=== PATIENT | male | born 1965 | race Caucasian/White ===

== ENCOUNTER 2018-12-10 04:17 | Inpatient (IN) ==
[2018-12-10] MEDS ORDERED: Aspirin 81 MG TAB.CHEW PO ONE (04:38)
[2018-12-10] MEDS ORDERED: *HR* Ticagrelor 90 MG TABLET PO ONE (04:38)
[2018-12-10] MEDS ORDERED: *HR* Heparin 5,000 UNIT/ML VIAL IVP ONE (04:40)
[2018-12-10] MEDS ORDERED: 0.9 % Sodium Chloride 1,000 ML IVC ONE (04:42)
[2018-12-10] MEDS ORDERED: Heparin 25,000 UNIT/250 ML D5W 25,000 UNIT/250 ML IV.SOLN IVC SCH (04:45)
--- NOTE | 2018-12-10 04:45 | Emergency Department Note ---
Disposition Clinical Impression: STEMI (ST elevation myocardial infarction) Qualifiers: Involved coronary artery: right coronary artery Qualified Code(s): I21.11 - ST elevation (STEMI) myocardial infarction involving right coronary artery Disposition: Admitted As Inpatient Condition: Fair Time of Disposition: 04:48 Chest Pain HPI - General Stated Complaint: CP/Jaw Pain Time Seen by Provider: 12/10/18 04:18 Source: patient, family () Mode of arrival: private vehicle Limitations: no limitations Vital Signs Reviewed: Yes Nursing Notes Reviewed: Yes - History of Present Illness HPI Narrative: 53-year-old male no prior cardiac history presents to the emergency department with chest discomfort jaw pain. States over the past 3 days sees been having intermittent jaw pain that occasionally will go away. This evening approximately one hour prior to arrival he woke up with significant jaw pain bilateral. Describes as a constant ache. He states he believes he was having a heart attack as this was worsen his typical anxiety attacks. He also has a very mild midsternal chest discomfort. Denies any diaphoresis, shortness of breath, nausea or vomiting. Reports of significant family history of heart disease. No prior cardiac evaluation. Reports a recent upper respiratory infection. Denies any blood in his stool black tarry stool, hemoptysis or hematemesis. He took 2 81 mg aspirin and believe prior to coming here now any relief of his symptoms. EKG on initial valuation shows inferior STEMI and STEMI alert immediately initiated. Pt complaint: chest pain - Related Data Allergies Allergy/AdvReac Type Severity Reaction Status Date / Time No Known Allergies Allergy Unverified 12/10/18 04:40 All systems ED: reviewed and negative except as stated. Review of Systems: As Per HPI Constitutional: Denies: fever, chills Cardiovascular: Reports: chest pain Respiratory: Denies: cough, dyspnea Gastrointestinal: Denies: abdominal pain, nausea, vomiting Musculoskeletal: Denies: back pain Integumentary: Denies: rash, abrasion Neurological: Denies: headache Psychiatric: Reports: anxiety Physical Exam - General Limitations: no limitations General appearance: alert, in no apparent distress - Head Head exam: atraumatic, normocephalic, normal inspection - Eye Eye exam: Present: normal appearance, PERRL, EOMI - ENT ENT exam: normal exam, normal oropharynx, mucous membranes moist - Neck Neck exam: Present: normal inspection, full ROM, trachea midline - Chest Chest inspection: Present: normal inspection, symmetric chest wall rise. Abs ent: tenderness - Respiratory Respiratory exam: Present: normal lung sounds bilaterally - Cardiovascular Cardiovascular exam: Present: regular rate, normal rhythm, normal heart sounds - Expanded Cardiovascular Exam Peripheral pulses: 2+: radial (R), radial (L) - Abdominal Exam Abdominal exam: Present: soft, Non-Tender, normal bowel sounds. Absent: tenderness, distention, guarding, rebound, rigidity - Extremities Exam Extremities exam: Present: normal inspection, full ROM, normal capillary refill. Absent: tenderness, pedal edema, calf tenderness - Back Exam Back exam: Present: normal inspection, full ROM. Absent: tenderness - Neurological Exam Neurological exam: Present: alert, oriented X3 - Psychiatric Psychiatric exam: Present: normal affect, normal mood - Skin Skin exam: Present: warm, dry, intact, normal color. Absent: rash, cyanosis, diaphoresis Course Course Narrative: STEMI alert initiated, will proceed to CATH. - Reevaluation(s) Reevaluation #1: Trop 0.32 Time: 05:32 - Consultations Consultation #1: My attending Dr. Nicolasa Dowell spoke to the on-call boomswing operator Dr. Núñez recommended 5000 units of heparin including aspirin in [place] today. Patient will be brought to the catheterization lab for STEMI Time: 04:47 Consultation #2: Dr. Núñez at bedside evaluating the patient. He remains hemodynamically stable. Time: 05:08 Vital Signs Temperature 98.2 F 12/10/18 04:43 Pulse Rate 105 12/10/18 04:43 Respiratory Rate 18 12/10/18 04:43 Blood Pressure 113/98 12/10/18 04:43 O2 Sat by Pulse Oximetry 98 12/10/18 04:43 Temperature 98.2 F 12/10/18 04:43 Pulse Rate 87 12/10/18 05:05 Respiratory Rate 20 12/10/18 05:05 Blood Pressure 172/78 12/10/18 05:09 O2 Sat by Pulse Oximetry 97 12/10/18 05:05 Oxygen Delivery Oxygen Delivery Room Air Chest Pain - MDM Narrative Medical decision making narrative: Patient was discussed with my attending physician who agrees with ED management and final disposition. They independently evaluated the patient. Please refer to their attestation to this encounter for additional information. This note was generated by [employer] voice recognition software and as a result grammatical or spelling errors may occur using this program. - Medical Records Medical records reviewed: Yes I reviewed the patient's medical records. - Lab Data Lab results reviewed: Yes I reviewed the patient's lab results. Result diagrams: 12/10/18 04:42 12/10/18 04:42 Lab Results 12/10/18 12/10/18 12/10/18 Range/Units 04:42 04:42 04:42 WBC 9.1 (4.3-11.1) K/mcL RBC 5.40 (4.19-5.50) M/mcL Hgb 15.7 (12.9-16.9) g/dL Hct 47.7 (37.5-50.1) % MCV 88.3 (83.0-100.0) fL MCH 29.1 (28.0-33.3) pg MCHC 32.9 (31.6-35.5) g/dL RDW 13.9 (11.5-14.5) % Plt Count 244 (140-400) K/mcL MPV 10.5 (9.4-12.4) fL Immature Gran % 0.3 (0-4) % Seg Neutrophils % 54.4 % Lymphocytes % 37.2 % Monocytes % 7.0 % Eosinophils % 0.7 % Basophils % 0.4 % Neutrophils # 4.9 (1.6-8.9) K/mcL Lymphocytes # 3.4 (0.6-4.6) K/mcL Monocytes # 0.6 (0.0-1.3) K/mcL Eosinophils # 0.1 (0.0-0.6) K/mcL Basophils # 0.0 (0.0-0.2) K/mcL PT 12.5 H (9.4-12.1) Seconds INR 1.1 APTT 28.6 (26.0-36.0) Seconds Heparin Anti-Xa, Unfract 0.00 L (0.30-0.70) IU/mL Sodium 135 L (136-145) mEq/L Potassium 3.6 (3.5-5.1) mEq/L Chloride 99 (98-107) mEq/L Carbon Dioxide 27 (23-29) mEq/L BUN 14 (6-20) mg/dL Creatinine 1.25 (0.70-1.30) mg/dL Est GFR ( Amer) > 60 (> 60) Est GFR (Non-Af Amer) > 60 (> 60) BUN/Creatinine Ratio 11 (6-26) Glucose 125 H (70-105) mg/dL Calculated Osmolality 282 (280-300) Calcium 9.3 (8.6-10.3) mg/dL Troponin I 0.32 H* (< 0.04) ng/mL - EKG Data EKG attestation: Yes I reviewed and interpreted this EKG. EKG results narrative: EKG performed 0435 normal sinus rhythm 75 beats per minute with significant ST elevation in lead [address] depression seen in the septal and lateral leads 1 and a VL. This is a STEMI Heart Score - Score History: Highly Suspicious EKG: Significant ST-Depression Age: 45-65 Risk Factors: 1-2 risk factors Troponin: Greater than 3x normal limit HEART Score Total: 8
--- NOTE | 2018-12-10 04:49 | Emergency Department Note ---
Disposition Clinical Impression: STEMI (ST elevation myocardial infarction) Qualifiers: Involved coronary artery: unspecified coronary artery Qualified Code(s): I21.3 - ST elevation (STEMI) myocardial infarction of unspecified site Disposition: Admitted As Inpatient Condition: Fair Time of Disposition: 04:49 General Adult HPI - General Stated complaint: CP/Jaw Pain Time Seen by Provider: 12/10/18 04:18 Source: patient, family () Mode of arrival: private vehicle Limitations: no limitations - History of Present Illness Pain Scale: 2 - Related Data Allergies Allergy/AdvReac Type Severity Reaction Status Date / Time No Known Allergies Allergy Unverified 12/10/18 04:40 Constitutional: Denies: fever, chills Cardiovascular: Reports: chest pain Respiratory: Denies: cough, dyspnea Gastrointestinal: Denies: abdominal pain, nausea, vomiting Past Medical History - Past Medical History Medical history: Reports: GERD Psychiatric history: Reports: no psych history - Social History Smoking Status: Never smoker Smokeless Tobacco Status: No Alcohol use: Reports: occasionally Drug use: Reports: none Physical Exam - General Limitations: no limitations General appearance: alert, in no apparent distress Course Vital Signs Temperature 98.2 F 12/10/18 04:43 Pulse Rate 105 12/10/18 04:43 Respiratory Rate 18 12/10/18 04:43 Blood Pressure 113/98 12/10/18 04:43 O2 Sat by Pulse Oximetry 98 12/10/18 04:43 Temperature 98.2 F 12/10/18 04:43 Pulse Rate 105 12/10/18 04:43 Respiratory Rate 18 12/10/18 04:43 Blood Pressure 113/98 12/10/18 04:43 O2 Sat by Pulse Oximetry 98 12/10/18 04:43 Oxygen Delivery Oxygen Delivery Room Air Attestation Statement - Attestation Attestation: I examined this patient and my medical decision-making was reviewed with the Resident Physician. I agree with the documented findings, disposition and treatment plan as described except to the extent set forth below. 53 year old male presents to the eD with complaints of chest pain and state he had jaw pain that started abotu one hour ago but he has been experincing jaw pain for over the past three days. It appears on EKG that he is having an inferoposterior lateral STEMI with depression in the inferior leads and depression in the in the lateral and anterior leads. I have discussed case with Dr. Duran who has agreed to take him to electronic lab technician. Saúl has been started on STEMI protocol, Dr. Duran would lke for him to have 5,000 units of heparin at this time.
[2018-12-10] MEDS ORDERED: Heparin 1,000 UNITS/500 mL 500 ML ONE (05:00)
[2018-12-10] MEDS ORDERED: 0.9 % Sodium Chloride 1,000 ML ONE (05:00)
[2018-12-10] MEDS ORDERED: *HR* Heparin 10,000 UNIT/10 ML VIAL ONE (05:00)
[2018-12-10] MEDS ORDERED: ISOVUE-370 200 ML INFUS..BTL ONE ×2 (05:00→05:29)
[2018-12-10] MEDS ORDERED: Nitroglycerin 1,000 MCG/10 ML VIAL IV ONE (05:01)
[2018-12-10 05:08] LABS: Basophils % 0.4 %; Eosinophils # 0.1 K/mcL (0.0-0.6); Eosinophils % 0.7 %; Hematocrit 47.7 % (37.5-50.1); Hemoglobin 15.7 g/dL (12.9-16.9); Immature Granulocytes % 0.3 % (0-4); Lymphocytes # 3.4 K/mcL (0.6-4.6); Lymphocytes % 37.2 %; Mean Corpuscular HGB Conc 32.9 g/dL (31.6-35.5); Mean Corpuscular Hemoglobin 29.1 pg (28.0-33.3); Mean Corpuscular Volume 88.3 fL (83.0-100.0); Mean Platelet Volume 10.5 fL (9.4-12.4); Monocytes # 0.6 K/mcL (0.0-1.3); Neutrophils # 4.9 K/mcL (1.6-8.9); Platelet Count 244 K/mcL (140-400); Red Cell Distribution Width 13.9 % (11.5-14.5); Segmented Neutrophils % 54.4 %
[2018-12-10 05:15] LABS: INR 1.1; Prothrombin Time 12.5 Seconds (9.4-12.1)
[2018-12-10 05:17] LABS: Activated Partial Thrombo Time 28.6 Seconds (26.0-36.0)
--- NOTE | 2018-12-10 05:18 | Cardiology History & Physical ---
Date of Encounter: 12/10/18 Time of Encounter: 05:16 Assessment and Plan (1) STEMI (ST elevation myocardial infarction) Current Visit: Yes Status: Acute The assessment and plan as outlined above was discussed with the patient and/or family members who expressed understanding and agreement. All questions were answered. Ongoing chest pain since 3 AM, EKG with inferior ST elevations, risks benefits and alternatives discussed with patient regards to emergent LHC and patient agrees to proceed. Aspirin, brilinta, heparin initiated in the emergency depar tment Qualifiers: Involved coronary artery: right coronary artery Qualified Code(s): I21.11 - ST elevation (STEMI) myocardial infarction involving right coronary artery History of Present Illness Chief complaint: Chest Pain HPI: Mr. Guerrier is a 53 year old male with history of hypertension not on medications presents to the emergency department after significant jaw pain associated with mild retrosternal chest pain. Patient states has been having chest pain over the last 3 days on and off. EKG shows inferior ST elevations. Patient continues have active chest pain. Patient was started on ACS medications per ER. Risks benefits and alternatives were discussed patient regards to an emergent LHC patient agrees to proceed. Limited H&P was obtained due to emergent nature of presentation and emergent need for LHC. Past Med Surg Social Fam HX - Past Medical History Medical history: GERD Psychiatric history: no psych history - Social History Smoking Status: Never smoker Smokeless Tobacco Status: No Alcohol use: occasionally Drug use: none Medications and Allergies Allergy/AdvReac Type Severity Reaction Status Date / Time No Known Allergies Allergy Unverified 12/10/18 04:40 All Systems Review: The remainder of the systems were reviewed and are negative Physical Examination Vital Signs, Last 4 Hours Temp Pulse Resp BP Pulse Ox 12/10/18 05:09 172/78 12/10/18 05:05 87 20 97 12/10/18 04:43 98.2 F 105 18 113/98 98 General: Conversant, No Apparent Distress HEENT: Atraumatic, Normocephaly, Mucus Membranes Moist Neck: No JVD, Normal carotid pulses Cardiac: Reg Rate and Rhythm, Normal S1 and S2, No Murmur Lungs: Normal Breath Sounds, No Wheeze, Rales, Rhonchi Neuro: Alert and responsive, No focal deficits noted Abdomen: Soft, Non-Tender Skin: No rashes noted on visualized skin Musculoskeletal: No Chest Wall Tenderness Extremities: No Clubbing, No Cyanosis, No Edema, Normal Pulses Results 12/10/18 04:42 Lab Results 12/10/18 12/10/18 04:42 04:42 WBC 9.1 Hgb 15.7 Hct 47.7 Plt Count 244 INR 1.1
[2018-12-10] MEDS ORDERED: *HR* FentaNYL (PF) 250 MCG/5 ML VIAL ONE (05:23)
[2018-12-10] MEDS ORDERED: *HR* Midazolam HCl 5 MG/5 ML VIAL IVP ONE (05:23)
[2018-12-10] MEDS ORDERED: Tirofiban 12.5 MG/250ML 12.5 MG/250 ML BAG ONE (05:24)
[2018-12-10 05:30] LABS: BUN/Creatinine Ratio 11 (6-26); Blood Urea Nitrogen 14 mg/dL (6-20); Calcium 9.3 mg/dL (8.6-10.3); Carbon Dioxide 27 mEq/L (23-29); Chloride 99 mEq/L (98-107); Glucose 125 mg/dL (70-105); Osmolality,Calculated 282 (280-300); Potassium 3.6 mEq/L (3.5-5.1); Sodium 135 mEq/L (136-145); Troponin I 0.32 ng/mL (< 0.04); eGFR For Non-African Americans > 60 (> 60)
[2018-12-10] MEDS ORDERED: Tirofiban 12.5 MG/250ML 12.5 MG/250 ML BAG IVC SCH (06:30)
--- NOTE | 2018-12-10 06:40 | Invasive Diagnostic Lab Proc ---
Name: Adam Guerrier Date of Study: 12/10/2018 Date: 1965 Ht: 72.0in Medical Record#: [id number] Age: 53 Wt: 287.70lb Gender: Male BSA: 2.49 Order #: [id number] BMI: 38.97 Physicians Procedure Physician: Karina Núñez MD Referring MD: Referring MD: Staff Name Position Time In Denny Clifton RN Cloth Doffer 05:25 AM Soha Lombardo RT (R) Scrub 05:25 AM Angelo Das RN Monitor 05:25 AM Indications Indication STEMI Procedures Performed Procedure L HRT ARTERY/VENTRICLE ANGIO PRQ CARD FERMIN STENT W/ANGIO 1 VSL Pre-Procedure Checklist Pt not NPO for procedure and MD aware. Plan of Care Patient will tolerate the procedure without complications. Adequate level of comfort will be maintained. Hemodynamics will remain stable Patient will recover from procedure without complications. Respiratory function will be maintained. Cardiac rhythm will remain stable. Patient temperature will be maintained. Patient and/or family have verbalized understanding of the procedure. Patient Education Allergies No Known Allergies Vital Signs Time BP (mmHg) HR (bpm) O2 Sat. RR (bpm) LOC 05:26 AM / % 5 = Fully awake and oriented or at pre-proc level 05:26 AM / % 5 = Fully awake and oriented or at pre-proc level 05:41 AM / % 4 = Oriented but drowsy 05:24 AM 182 / 95 96 95 % 18 05:27 AM 141 / 91 70 92 % 21 05:32 AM 141 / 87 90 89 % 29 05:37 AM 154 / 85 86 92 % 21 05:43 AM 123 / 81 88 95 % 17 05:47 AM 125 / 82 84 92 % 15 05:52 AM 128 / 71 94 93 % 23 05:57 AM 130 / 86 88 92 % 15 06:02 AM 141 / 82 89 91 % 19 06:08 AM 121 / 84 88 93 % 27 Procedural Medications Time Medication Dose Units Method Given By 05:26 AM Oxygen 2 L/min nasal cannula Denny Clifton RN 05:26 AM Versed 1 mg Intravenous Denny Clifton RN 05:26 AM Fentanyl 50 mcg Intravenous Denny Clifton RN 05:29 AM Lidocaine 2% [address] Núñez 05:38 AM Aggrastat Bolus: 19.5 ml Intravenous Denny Clifton RN 05:39 AM Aggrastat 12.5mg/250ml 45.5 ml Intravenous Denny Clifton RN 05:52 AM Nitroglycerin 200 mcg Intracoronary Kendal Núñez MD ASA Classification: CLASS II- Mild systemic disease (i.e. well-controlled diabetes, hypertension, asthma, cigarette smoking) Emergent Procedure: ASA score is assumed Fritz Score Preprocedure Postprocedure Activity 2- Moves 4 extremities sustained head lift Activity 2- Moves 4 extremities sustained head lift Circulation 2- SBP +/= 20 points of pre-anesthetic level Circulation 2- SBP +/= 20 points of pre-anesthetic level Consciousness 2- Awake and alert oriented x 3 Consciousness 2- Awake and alert oriented x 3 O2 Saturation 2- Able to maintain O2 satruation of 92% on room air O2 Saturation 2- Able to maintain O2 satruation of 92% on room air Respiratory 2- Able to deep breathe and cough well Respiratory 2- Able to deep breathe and cough well Total Score 10 Total Score 10 Contrast Agent: Isovue Diagnostic Contrast: 198 ml Total Contrast: 198 ml Fluoro Dose: 145 mGy Activated Clotting Time Time Seconds to Clot 05:41 AM 309 Procedure Log Time Note Enter By 05:22 AM Vitals capture started with the following parameters, Patient=Adult, Interval=5 min, Initial Loeultup=754 mmHg, Deflation Rate=5 mmHg, Cuff placed on Right Arm 05:24 AM HR=96 bpm, KDIR=642/95 mmhg, SpO2=95 %, Resp=18 B/min 05:25 AM Pt arrived to rags laborer 2 at 05:25 cedwards 05:25 AM Denny Clifton RN Position: Cloth Doffer Time in: 05:25 cedwards 05:25 AM Soha Lombardo RT (R) Position: Scrub Time in: 05:25 cedwards 05:25 AM Angelo Das RN Position: Monitor Time in: 05:25 cedwards 05:25 AM Patient charges- Angio tray pack, Navilyst 3mm J, Pulse Oximetry and ACIST tubing and transducer cedwards 05:25 AM IV Supplies used: J loop Angio Cath. cedwards 05:25 AM Hair removed from procedure site in procedure lab using clippers. Bilateral groin prepped with Chloraprep by Angelo Das RN, then patient was draped. Skin intact. cedwards 05:25 AM Physician arrived 05:25 cedwards 05:25 AM ASA Class CLASS II- Mild systemic disease (i.e. well-controlled diabetes, hypertension, asthma, cigarette smoking) cedwards 05: AM Erich ro wright completed cedwards : AM Sign in performed according to hospital policy. Informed consent was obtained. cedwards 05: AM Procedure start cedwards : AM Time: 05: Patient comfortable and pain free: Yes cedwards : AM Time: LOC: 5 = Fully awake and oriented or at pre-proc level cedwards : AM Time: : Oxygen on at 2 L/min per nasal cannula by Denny Clifton RN cedwards : AM Time: : Versed 1 mg Intravenous Given by Denny Clifton RN cedwards AM Time: : Fentanyl 50 mcg Intravenous Given by Denny Clifton RN cedwards 05: AM Clinical Presentation: STEMI or equivalent cedwards 05: AM Time out was performed according to hospital policy. Conscious sedation and anesthesia was achieved (see medication log with in this report above) cedwards : AM Case Start : AM CathStat 05: AM Recorded ECG: HR=74 Condition=Condition 1 05:27 AM HR=70 bpm, BNGM=349/91 mmhg, SpO2=92.0 %, Resp=21 B/min, EtCO2=36 mmHg 05: AM Time: 19 ml Lidocaine 2% to right groin Subcutaneous Given by Dr. Núñez cedwards 05:30 AM Micro-Introducer Kit utilized for sheath placement cedwards 05:30 AM Access obtained by percutaneous puncture. 6Fr 10cm Terumo [place] sheath placed in right Femoral artery. [id number] cedwards 05:31 AM 5Fr FL 4 catheter inserted over the wire [facility] cedwards 05:32 AM LCA angiography performed in multiple views. cedwards 05:32 AM HR=90 bpm, YLDG=495/87 mmhg, SpO2=89.0 %, Resp=29 B/min, EtCO2=36 mmHg 05:33 AM Catheter removed cedwards 05:34 AM 6Fr JR 4 Runway guide catheter was used to cannulate the PCI vessel successfully. reused? No cedwards 05:34 AM Recorded Pressure: Ao, HR=79, Condition=Condition 1 (Aorta) Ao 0/0/0 05:34 AM RCA angiography performed in multiple views. cedwards 05:36 AM Coronary Dominance: right cedwards 05:36 AM Lesion found in Mid RCA. Pre Stenosis: 70 Pre BETY Flow: 3: Complete and Brisk Flow/Perfusion cedwards 05:37 AM Lesion found in Distal RCA. Pre Stenosis: 99 Pre BTEY Flow: 1: Slow Penetration without Perfusion cedwards 05:37 AM .014 [employer] [place] 190cm guide wire across target lesion- successful. reused? No cedwards 05:37 AM HR=86 bpm, CTCD=952/85 mmhg, SpO2=92.0 %, Resp=21 B/min 05:38 AM 2.0 mm x 12 mm Emerge Monorail balloon across target lesion- successful. reused? No cedwards 05:38 AM Inflation device was opened. cedwards 05:39 AM Time: 05:38 Aggrastat Bolus: 19.5 ml Intravenous Given by Denny Clifton RN Jorge pump cedwards 05:39 AM Time: 05:39 Aggrastat 12.5mg/250ml 45.5 ml Intravenous Given by Denny Clifton RN Jorge pump cedwards 05:39 AM Balloon inflated @ 6 hawa for 10 seconds cedwards 05:39 AM Balloon inflated @ 6 hawa for 8 seconds cedwards 05:40 AM Balloon inflated @ 8 hawa for 7 seconds cedwards 05:40 AM Balloon inflated @ 8 hawa for 3 seconds cedwards 05:40 AM Balloon catheter removed intact. cedwards 05:41 AM Time: 05:26LOC: 5 = Fully awake and oriented or at pre-proc level cedwards 05:41 AM Time: 05:26 Patient comfortable and pain free: Yes cedwards 05:41 AM Recorded Pressure: Ao, HR=96, Condition=Condition 1 (Aorta) Ao 148/108/123 05:41 AM At 05:41 the ACT was 309 seconds. cedwards 05:42 AM Pressure channel 1 zeroed. 05:42 AM Recorded Pressure: Ao, HR=96, Condition=Condition 1 (Aorta) Ao 100/73/86 05:43 AM HR=88 bpm, YWYD=110/81 mmhg, SpO2=95.0 %, Resp=17 B/min 05:43 AM 3.5mm x 24mm Synergy drug-eluting stent across target lesion- successful Lot #[id number] cedwards 05:44 AM Stent deployed @ 11 hawa for 14 seconds cedwards 05:45 AM Stent balloon reinflated @ 14 hawa for 12 seconds cedwards 05:46 AM Stent delivery system removed intact. cedwards 05:46 AM Recorded Pressure: Ao, HR=90, Condition=Condition 1 (Aorta) Ao 110/77/92 05:47 AM HR=84 bpm, GPWU=564/82 mmhg, SpO2=92.0 %, Resp=15 B/min, EtCO2=38 mmHg 05:48 AM 4.0mm x 24mm Synergy drug-eluting stent across target lesion- successful Lot #[id number] cedwards 05:49 AM Stent deployed @ 11 hawa for 11 seconds cedwards 05:50 AM Stent balloon reinflated @ 18 hawa for 21 seconds cedwards 05:50 AM Stent delivery system removed intact. cedwards 05:52 AM Time: 05:52 Nitroglycerin 200 mcg Intracoronary Given by Kendal Núñez MD cedwards 05:52 AM HR=94 bpm, KQCA=311/71 mmhg, SpO2=93.0 %, Resp=23 B/min, EtCO2=36 mmHg 05:55 AM 4.5 mm x 12 mm Emerge Monorail balloon across target lesion- successful. reused? No cedwards 05:56 AM Balloon inflated @ 2 hawa for 3 seconds cedwards 05:56 AM Time: 05:41 Patient comfortable and pain free: Yes cedwards 05:56 AM Time: 05:41LOC: 4 = Oriented but drowsy cedwards 05:57 AM Balloon inflated @ 4 hawa for 6 seconds cedwards 05:57 AM Balloon inflated @ 12 hawa for 10 seconds cedwards 05:57 AM HR=88 bpm, XNBW=997/86 mmhg, SpO2=92 %, Resp=15 B/min 05:58 AM Balloon inflated @ 12 hawa for 5 seconds cedwards 05:58 AM Balloon inflated @ 10 hawa for 5 seconds cedwards 05:59 AM Balloon catheter removed intact. cedwards 06:00 AM Recorded Pressure: Ao, HR=84, Condition=Condition 1 (Aorta) Ao 101/67/85 06:00 AM Guide wire removed intact. cedwards 06:00 AM Guide catheter removed intact. cedwards 06:01 AM 5Fr Pigtail catheter inserted over the wire [facility] cedwards 06:01 AM Catheter crossed the aortic valve and was selectively placed in the left ventricle. Pressures recorded on pullback for left heart catheterization. cedwards 06:02 AM HR=89 bpm, CUDG=118/82 mmhg, SpO2=91.0 %, Resp=19 B/min 06:03 AM Recorded Pressure: LV, HR=90, Condition=Condition 1 (Left Ventricle) LV 112/17/20 06:03 AM Bolus angiogram of left Ventricle complete: 10 ml/sec for a total of 20 mls cedwards 06:04 AM Recorded Pressure: LV, Ao, HR=95, Condition=Condition 1 (Left Ventricle) LV 106/34/32, (Aorta) Ao 101/76/90 06:04 AM Catheter removed cedwards 06:04 AM Procedure completed at 06:04 12/10/2018 cedwards 06:04 AM Did you address BETY flow and Dominance? Yes cedwards 06:06 AM Sign out completed: Radiation Dose 1798.14 mGy, 145 Gy/cm2 Fluoro Time: 11.8 Isovue 370 - 200ml contrast 198 ml given by Karina Núñez MD. Complications: None. 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 Sedation minutes 40. Cardiac Rehab Consult needed: Yes. Confirmed administered medications: Yes cedwards 06:06 AM Isovue 370 - 200ml,2 Bottle(s) used. cedwards 06:07 AM Arterial sheath pulled, Angio-seal closure device used and was Successful [id number] S/N. cedwards 06:07 AM Estimated Blood Loss: minimal cedwards 06:07 AM Post ECG NSR cedwards 06:07 AM Information taught Cardiac Cath, PCI, and Angioseal cedwards 06:07 AM Education needs Procedure, Plan of Care, and Disease Process cedwards 06:07 AM Learning barriers :None cedwards 06:07 AM Education Methods Verbal cedwards 06:07 AM Education evaluation Able to repeat information cedwards 06:08 AM Site status No bleeding/hematoma - Rt Groin as reported by Kendal Núñez MD at 06:07 cedwards 06:08 AM HR=88 bpm, KICN=560/84 mmhg, SpO2=93.0 %, Resp=27 B/min, EtCO2=36 mmHg 06:08 AM Opsite applied cedwards 06:08 AM Plavix, Effient or Brilinta given Yes, ER cedwards 06:08 AM Family placed in consult room. cedwards 06:08 AM Complications: None cedwards 06:09 AM Lesion found in Proximal LAD. Pre Stenosis: 25 Pre BETY Flow: cedwards 06:09 AM Lesion found in 2nd Diagonal. Pre Stenosis: 99 Pre BETY Flow: cedwards 06:22 AM Lesion found in Proximal LMCA. Pre Stenosis: 20 Pre BETY Flow: cedwards 06:26 AM Report given to Carolyn VILLAGOMEZ Pt taken to ICU. 06:26 cedwards Complications Complication None None Hemodynamics Pressures Site Systolic/A Wave Diastolic/V Wave Mean AO 0 0 0 AO 148 108 123 AO 100 73 86 AO 110 77 92 AO 101 67 85 LV 112 17 20 LV 106 34 32 AO 101 76 90 Post Procedure Information Rhythm: NSR Post procedural instructions were given Closure Device Time Device Success/Fail 12/10/2018 6:04:00 AM Angio-Seal VIP Successful Site Checks Time Location Status Staff Sheath In? Note 06:07 AM Rt Groin No bleeding/hematoma Kendal Núñez MD Pulses Updated by Angelo Das RN on 12/10/2018 6:27:48 AM electronically signed on 12/10/2018 6:28:27 AM with status of Final
[2018-12-10] MEDS: *HR* Ticagrelor 90 MG TABLET PO SCH ×2 (09:15→21:21)
[2018-12-10] MEDS: Aspirin 81 MG TAB.CHEW PO SCH (09:15)
[2018-12-10 13:07] LABS: BUN/Creatinine Ratio 12 (6-26); Blood Urea Nitrogen 12 mg/dL (6-20); Calcium 9.1 mg/dL (8.6-10.3); Carbon Dioxide 24 mEq/L (23-29); Chloride 103 mEq/L (98-107); Glucose 119 mg/dL (70-105); Osmolality,Calculated 285 (280-300); Potassium 4.1 mEq/L (3.5-5.1); Sodium 137 mEq/L (136-145); eGFR For Non-African Americans > 60 (> 60)
--- NOTE | 2018-12-10 17:06 | Electrocardiograph Report ---
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
--- NOTE | 2018-12-10 17:09 | Electrocardiograph Report ---
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
[2018-12-11 07:21] LABS: Basophils % 0.4 %; Eosinophils # 0.1 K/mcL (0.0-0.6); Eosinophils % 0.5 %; Hemoglobin 15.7 g/dL (12.9-16.9); Immature Granulocytes % 0.3 % (0-4); Lymphocytes # 2.7 K/mcL (0.6-4.6); Mean Corpuscular HGB Conc 32.7 g/dL (31.6-35.5); Mean Corpuscular Hemoglobin 29.3 pg (28.0-33.3); Mean Corpuscular Volume 89.6 fL (83.0-100.0); Mean Platelet Volume 10.5 fL (9.4-12.4); Monocytes # 0.8 K/mcL (0.0-1.3); Monocytes % 7.2 %; Neutrophils # 7.2 K/mcL (1.6-8.9); Platelet Count 243 K/mcL (140-400); Red Blood Count 5.36 M/mcL (4.19-5.50); Red Cell Distribution Width 14.2 % (11.5-14.5); Segmented Neutrophils % 66.6 %
[2018-12-11 07:32] LABS: BUN/Creatinine Ratio 13 (6-26); Blood Urea Nitrogen 13 mg/dL (6-20); Calcium 9.2 mg/dL (8.6-10.3); Carbon Dioxide 27 mEq/L (23-29); Chloride 102 mEq/L (98-107); Glucose 103 mg/dL (70-105); Osmolality,Calculated 286 (280-300); Potassium 4.3 mEq/L (3.5-5.1); Sodium 138 mEq/L (136-145); eGFR For Non-African Americans > 60 (> 60)
[2018-12-11] MEDS: *HR* Ticagrelor 90 MG TABLET PO SCH ×2 (08:34→20:35)
[2018-12-11] MEDS: Aspirin 81 MG TAB.CHEW PO SCH (08:34)
--- NOTE | 2018-12-11 14:38 | Cardiology Progress Note ---
Date of Encounter: 12/11/18 Time of Encounter: 13:00 Assessment and Plan (1) STEMI (ST elevation myocardial infarction) Current Visit: Yes Status: Acute Per cardiology: -Admitted as acute STEMI s/p emergent [facility] yesterday with 20% prox LM, 25% prox LAD, 99% diagonal 2, 70% mid RCA with FERMIN placed, 99% distal RCA with FERMIN placed. -On asa, brilinta, statin, BB. Educated on dual anti-platelet therapy uninterrupted for at least one year, states understanding. -TTE with LVEF 45-50%, moderate bi-atrial enlargement, mild MR, mild TR, mid inferior and basal inferior veliz hypokinetic. -Right groin access site with ecchymosis noted, no hematoma. -VItal signs stable. -Will transfer out of ICU today. -Anticiapte discharge home tomorrow. Qualifiers: Involved coronary artery: right coronary artery Qualified Code(s): I21.11 - ST elevation (STEMI) myocardial infarction involving right coronary artery Discussion w patient/family: The assessment and plan as outlined above was discussed with the patient and/or family members who expressed understanding and agreement. All questions were answered. Thank you for involving us in the care of your patient. Please call with any questions. Discussed and reviewed with . Subjective Principal diagnosis: STEMI Interval history: Patient denies chest/jaw pain. States he feels well today. Objective Vital Signs, Last 4 Hours Temp Pulse Resp BP Pulse Ox 12/11/18 13:00 68 16 114/80 95 12/11/18 12:10 98.2 F 12/11/18 12:00 69 17 117/78 95 12/11/18 11:48 52 12/11/18 11:00 61 18 128/85 97 General: Conversant, No Apparent Distress HEENT: Atraumatic, Normocephaly, Mucus Membranes Moist Neck: No JVD, Normal carotid pulses Cardiac: Reg Rate and Rhythm, Normal S1 and S2, No Murmur Lungs: Normal Breath Sounds, No Wheeze, Rales, Rhonchi Neuro: Alert and responsive, No focal deficits noted Abdomen: Soft, Non-Tender Skin: No rashes noted on visualized skin, Other (Right groin access site with ecchymosis noted, no hematoma. ) Musculoskeletal: No Chest Wall Tenderness Extremities: No Clubbing, No Cyanosis, No Edema, Normal Pulses Results 12/11/18 06:55 12/11/18 06:55 Lab Results Active Medications Aspirin (Aspirin) 81 mg PO DAILY [facility] Stop: 06/11/19 09:01 Last Admin: 12/11/18 08:34 Dose: 81 mg Atorvastatin Calcium (Lipitor) 80 mg PO HS [facility] Stop: 06/11/19 21:01 Last Admin: 12/10/18 21:21 Dose: 80 mg Lisinopril (Zestril) 2.5 mg PO DAILY [facility]; Protocol Stop: 06/11/19 11:01 Last Admin: 12/11/18 08:34 Dose: 2.5 mg Metoprolol Tartrate (Lopressor) 25 mg PO Q8HR [facility] Stop: 06/11/19 16:01 Last Admin: 12/11/18 08:34 Dose: 25 mg Omeprazole (Prilosec) 40 mg PO 1900 [facility]; Protocol Stop: 06/12/19 19:01 Ticagrelor (Brilinta) 90 mg PO BID [facility] Stop: 06/11/19 09:01 Last Admin: 12/11/18 08:34 Dose: 90 mg Laboratory Tests 12/11/18 12/11/18 06:55 06:55 Hgb 15.7 Creatinine 0.97 - Imaging and Cardiology Chest Xray: report reviewed Echo: report reviewed - EKG Interpretation EKG results cardiology: other (Unable to review telemetry. No reported events per RN.) Consult Discharge Plan - Plan Referrals: Lemuel Bolanos DO [Primary Care Provider] -
--- NOTE | 2018-12-11 15:32 | Electrocardiograph Report ---
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
[2018-12-12] MEDS: *HR* Ticagrelor 90 MG TABLET PO SCH (07:46)
[2018-12-12] MEDS ORDERED: Aspirin 81 MG TAB.CHEW PO SCH (09:00)
[2018-12-12 09:43] VITALS: BP 116/54
--- NOTE | 2018-12-12 10:09 | Discharge Summary ---
- NOTES TO OUTPATIENT PROVIDER Notes to Outpatient Provider: Admitted as acute STEMI Orders not resulted at time of discharge: Pending orders 12/10/18 06:18 ECG 12 lead ECG [ECG] Routine Date of Encounter: 12/12/18 Time of Encounter: 09:00 - Discharge Diagnosis (1) STEMI (ST elevation myocardial infarction) Priority: Primary Status: Acute Comments: Admitted as acute STEMI Qualifiers: Involved coronary artery: right coronary artery Qualified Code(s): I21.11 - ST elevation (STEMI) myocardial infarction involving right coronary artery - Hospital Course Hospital course: Mr. 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 Patient received FERMIN x2 to RCA, has remaining 20% prox LM, 25% prox LAD, 99% diagonal 2 disease. On asa, brilinta. Educated on dual anti-platelet therapy uninterrupted for at least one year, states understanding. Of note, patient is [place] and states he can afford [place] for brilinta. Patient is chest/jaw pain free. Regarding remaining diagonal 2 leasion, discussed with , with no current symptoms with exertion, recommend outpatient evaluation for possible staged PCI. On statin, BB, celestino inhibitor. TTE with LVEF 45-50%, mid inferior and basal inferior veliz hypokinetic. Right groin access with mild ecchymosis, no hematoma. Right groin access site management education reviewed with patient. Patient is being prepped for discharge home in stable condition. All questions answered. Patient will follow with [facility], follow up set. - Time Spent with Patient Total time spent providing and/or coordinating discharge services: Less than 30 minutes - Discharge Medications Prescriptions: New Atorvastatin [Lipitor] 80 mg PO HS #30 tablet Lisinopril [Zestril] 2.5 mg PO DAILY #30 tablet Metoprolol [Lopressor] 37.5 mg PO BID #60 tablet Ticagrelor [Brilinta] 90 mg PO BID #60 tablet Continue Omeprazole Magnesium [Prilosec Otc] 20 mg PO DAILY Aspirin [Adult Aspirin] 81 mg PO DAILY Home Medications: Aspirin [Adult Aspirin] 81 mg PO DAILY 12/11/18 [History] Omeprazole Magnesium [Prilosec Otc] 20 mg PO DAILY 12/11/18 [History] Atorvastatin [Lipitor] 80 mg PO HS #30 tablet 12/12/18 [Rx] Lisinopril [Zestril] 2.5 mg PO DAILY #30 tablet 12/12/18 [Rx] Metoprolol [Lopressor] 37.5 mg PO BID #60 tablet 12/12/18 [Rx] Ticagrelor [Brilinta] 90 mg PO BID #60 tablet 12/12/18 [Rx] Allergies/Adverse Reactions: Allergy/AdvReac Type Severity Reaction Status Date / Time No Known Allergies Allergy Verified 12/11/18 11:55 Date of admission: 12/10/18 05:02 Primary care physician: Lemuel Bolanos Consults: 12/10/18 06:18 Consult to Cardiac Rehabilitation-Phase1 [CONS] Routine Comment: Reason for Consult: AMI Call Completed: Yes Consult to Nurse Navigator [CONS] Routine Comment: 12/10/18 07:00 Consult to Event Planning Manager [CONS] Routine Reason for SW Consult: need help with insurance, has [facility] [facility] Discharging clinician: Madeline Stephens Anticipated date of discharge: 12/12/18 Physical Examination Vital Signs, Last 4 Hours Temp Pulse Resp BP Pulse Ox 12/12/18 09:00 65 19 116/54 12/12/18 07:48 72 18 117/74 98 12/12/18 07:45 98.3 F 12/12/18 07:28 60 12/12/18 07:00 61 16 99 General: Conversant, No Apparent Distress HEENT: Atraumatic, Normocephaly, Mucus Membranes Moist Neck: No JVD, Normal carotid pulses Cardiac: Reg Rate and Rhythm, Normal S1 and S2, No Murmur Lungs: Normal Breath Sounds, No Wheeze, Rales, Rhonchi Neuro: Alert and responsive, No focal deficits noted Abdomen: Soft, Non-Tender Skin: No rashes noted on visualized skin, Other (Right groin access site with mild ecchymosis, no hematoma. ) Musculoskeletal: No Chest Wall Tenderness Extremities: No Clubbing, No Cyanosis, No Edema, Normal Pulses - Patient Status Disposition: Home, Self-Care Condition: Good Functional capacity at discharge: independent ambulation Overall status at discharge: patient is progressing back to baseline - Discharge Instructions Follow Up With: Lemuel Bolanos DO [Primary Care Provider] - Forms: ED Satisfaction Letter Additional Instructions: RISK FACTORS: STOP SMOKING: If you smoke, STOP. Smoking or tobacco use significantly increases your risk of heart disease because nicotine causes the arteries to narrow or constrict. It also causes fats to stick to the artery. Your chances of having a heart attack are greatly increased if you continue to smoke. For more information, call the education line for smoking cessation 6-127-[id number] EAT A LOW FAT/CHOLESTEROL/SODIUM DIET: This diet may help reduce your chances of having a heart attack. LIFTING: Avoid lifting anything more than 10 pounds for 5-7 days Prior to straining, laughing, sneezing and/or coughing, apply manual pressure directly over insertion site. ACTIVITY: You may walk or climb stairs as tolerated You can resume sexual activity as tolerated In general, you are encouraged to engage in a minimum of 30 minutes or more of moderate intensity physical activity, such as brisk walking, daily or at least 3-4 times weekly BATHING Do not submerge the site into water (bath tub, hot tub, swimming pool) for 1 week. This can be a source for infection into the blood stream. You may shower after 24 hours SITE CARE: After 24 hours, you may remove the dressing and leave the site open to air. Keep the site clean and dry. Clean gently and pat dry. You can expect bruising and tenderness that gradually resolve within a week or two. Return to work as instructed per your physician Resume driving as instructed per physician Keep all scheduled follow up appointments Resume medications as instructed IMPORTANT: If prescribed a Platelet Aggregation Inhibitor such as, Plavix, Brilinta or Effient: Duration of therapy is minimum one year These medications are often used in combination with Aspirin in prevention of future heart attacks Never discontinue unless consult with your [employer] STROKE (CVA) Risk factors for a stroke are: Age, cigarette smoking, diabetes, excessive alcohol consumption, family history, high blood pressure, overweight, physical inactivity, prior stroke, heart attack, diagnosis of carotid artery stenosis or other artery disease. Warning signs: Sudden numbness or weakness of the face, arm or leg; especially on one side of the body, sudden confusion, trouble speaking or understanding, sudden trouble seeing in one or both eyes, sudden trouble walking, dizziness, loss of balance or coordination, sudden severe headache with no cause. Call 911 or go to the Emergency Room. CONGESTIVE HEART FAILURE: If you have been diagnosed with Congestive Heart Failure (CHF) and your symptoms return, make an appointment with your physician Weigh yourself daily. Notify your physician if you have a weight gain of two or more pounds in one day or five or more pounds in one week. If you experience any difficulty breathing, please call 911 BLEEDING: Although the risk of bleeding is minimal, it can happen. If you have any bleeding from the site, apply firm pressure above the puncture site for 10-15 minutes. If the bleeding does not stop, continue manual pressure and call 911 Contact your physician if: You develop a fever greater than 101 degrees Fahrenheit Your site becomes reddened or has any drainage You have an increase in pain or burning at the site or if a large knot forms at the site. If you experience chest pain, shortness of breath, dizziness, or extreme tiredness, stop the activity and rest. Please notify your physicians office if you experience any of these symptoms and they are not relieved by rest please call 911! - Diet and Activity Activity: increase activity as tolerated (Follow restrictions as above. ) Diet: low fat, low cholesterol, low salt diet
== END 2018-12-12 10:36 | disposition home or self-care (01) | DRG 247 ==
LOC: EMEROOARM 04:17 → ICNU 05:02
PROVIDERS: ADMIT Internal Medicine Cardiovascular Disease; ATTEND Internal Medicine Cardiovascular Disease

== ENCOUNTER 2019-11-16 07:02 | Observation (INO) ==
[2019-11-16] MEDS ORDERED: Aspirin 81 MG TAB.CHEW PO ONE (07:15)
[2019-11-16 07:43] LABS: Basophils % 0.5 %; Eosinophils # 0.1 K/mcL (0.0-0.6); Eosinophils % 0.8 %; Hematocrit 44.9 % (37.5-50.1); Hemoglobin 14.7 g/dL (12.9-16.9); Immature Granulocytes % 0.3 % (0-4); Lymphocytes # 2.2 K/mcL (0.6-4.6); Lymphocytes % 33.4 %; Mean Corpuscular HGB Conc 32.7 g/dL (31.6-35.5); Mean Corpuscular Hemoglobin 29.8 pg (28.0-33.3); Mean Corpuscular Volume 91.1 fL (83.0-100.0); Mean Platelet Volume 10.4 fL (9.4-12.4); Monocytes # 0.5 K/mcL (0.0-1.3); Monocytes % 7.2 %; Neutrophils # 3.8 K/mcL (1.6-8.9); Platelet Count 204 K/mcL (140-400); Red Blood Count 4.93 M/mcL (4.19-5.50); Red Cell Distribution Width 12.4 % (11.5-14.5); Segmented Neutrophils % 57.8 %; White Blood Count 6.6 K/mcL (4.3-11.1)
[2019-11-16 08:02] LABS: BUN/Creatinine Ratio 17 (6-26); Blood Urea Nitrogen 18 mg/dL (6-20); Calcium 9.2 mg/dL (8.6-10.3); Carbon Dioxide 27 mEq/L (23-29); Chloride 100 mEq/L (98-107); Glucose 126 mg/dL (70-105); Osmolality,Calculated 283 (280-300); Potassium 3.9 mEq/L (3.5-5.1); Sodium 135 mEq/L (136-145); Troponin I < 0.03 ng/mL (< 0.04); eGFR For African Americans > 60 (> 60); eGFR For Non-African Americans > 60 (> 60)
[2019-11-16] MEDS ORDERED: Ondansetron 4 MG/2 ML VIAL IVP PRN (08:24)
[2019-11-16] MEDS ORDERED: Naloxone 0.4 MG/ML INJ IVP PRN (08:24)
[2019-11-16 09:25] LABS: Magnesium 1.9 mg/dL (1.6-2.6); Phosphorous 3.2 mg/dL (2.7-4.5)
[2019-11-16 09:38] LABS: Thyroid Stimulating Hormone 1.214 mcIU/mL (0.340-5.600)
[2019-11-16] MEDS: *HR* Ticagrelor 90 MG TABLET PO SCH ×2 (10:33→21:27)
[2019-11-16] MEDS: lisinopriL 5 MG TABLET PO SCH (10:34)
[2019-11-16] MEDS: 0.9 % Sodium Chloride 1,000 ML IVC SCH (10:48)
[2019-11-16] MEDS: *HR* Heparin 5,000 UNIT/ML VIAL SQ SCH ×2 (13:21→21:27)
[2019-11-17] MEDS: 0.9 % Sodium Chloride 1,000 ML IVC SCH (02:46)
[2019-11-17] MEDS: *HR* Heparin 5,000 UNIT/ML VIAL SQ SCH (05:31)
[2019-11-17 06:04] LABS: Basophils % 0.5 %; Eosinophils # 0.1 K/mcL (0.0-0.6); Eosinophils % 0.7 %; Hematocrit 46.6 % (37.5-50.1); Immature Granulocytes % 0.4 % (0-4); Lymphocytes # 2.6 K/mcL (0.6-4.6); Mean Corpuscular HGB Conc 32.2 g/dL (31.6-35.5); Mean Corpuscular Hemoglobin 29.5 pg (28.0-33.3); Mean Corpuscular Volume 91.6 fL (83.0-100.0); Mean Platelet Volume 10.6 fL (9.4-12.4); Monocytes # 0.5 K/mcL (0.0-1.3); Monocytes % 6.4 %; Neutrophils # 4.2 K/mcL (1.6-8.9); Platelet Count 204 K/mcL (140-400); Red Blood Count 5.09 M/mcL (4.19-5.50); Red Cell Distribution Width 12.6 % (11.5-14.5); White Blood Count 7.4 K/mcL (4.3-11.1)
[2019-11-17 06:22] LABS: BUN/Creatinine Ratio 13 (6-26); Blood Urea Nitrogen 13 mg/dL (6-20); Calcium 9.2 mg/dL (8.6-10.3); Carbon Dioxide 26 mEq/L (23-29); Chloride 104 mEq/L (98-107); Glucose 99 mg/dL (70-105); Osmolality,Calculated 284 (280-300); Potassium 4.1 mEq/L (3.5-5.1); Sodium 137 mEq/L (136-145); eGFR For African Americans > 60 (> 60); eGFR For Non-African Americans > 60 (> 60)
[2019-11-17] MEDS: *HR* Ticagrelor 90 MG TABLET PO SCH (08:03)
[2019-11-17] MEDS: lisinopriL 5 MG TABLET PO SCH (08:03)
[2019-11-17] MEDS ORDERED: Aspirin Enteric Coated 81 MG Tablet PO SCH (09:00)
[2019-11-17 10:49] VITALS: BP 175/72
== END 2019-11-17 11:18 | disposition home or self-care (01) ==
LOC: 3BNU 07:02 → EMEROOARM 07:02 → SUATTDRO 08:23 → 3BNU 09:22
PROVIDERS: ADMIT Family Medicine; ATTEND Internal Medicine

== ENCOUNTER 2020-11-18 17:19 | Observation (INO) ==
[2020-11-18] MEDS ORDERED: *HR* Metoprolol 5 MG/5 ML VIAL IVP ONE ×2 (17:58→19:16)
[2020-11-18 18:02] LABS: Basophils % 0.3 %; Eosinophils % 0.3 %; Hematocrit 47.2 % (37.5-50.1); Hemoglobin 15.8 g/dL (12.9-16.9); Immature Granulocytes % 0.2 % (0-4); Lymphocytes # 3.1 K/mcL (0.6-4.6); Lymphocytes % 33.1 %; Mean Corpuscular HGB Conc 33.5 g/dL (31.6-35.5); Mean Corpuscular Hemoglobin 29.9 pg (28.0-33.3); Mean Corpuscular Volume 89.4 fL (83.0-100.0); Mean Platelet Volume 10.6 fL (9.4-12.4); Monocytes # 0.6 K/mcL (0.0-1.3); Monocytes % 6.1 %; Neutrophils # 5.6 K/mcL (1.6-8.9); Platelet Count 222 K/mcL (140-400); Red Blood Count 5.28 M/mcL (4.19-5.50); Red Cell Distribution Width 12.5 % (11.5-14.5); White Blood Count 9.3 K/mcL (4.3-11.1)
[2020-11-18 18:21] LABS: Alanine Aminotransferase 35 Units/L (7-52); Albumin 4.5 g/dL (3.5-5.7); Albumin/Globulin Ratio 1.5 (1.1-2.2); Alkaline Phosphatase 94 Units/L (34-104); Aspartate Amino Transferase 22 Units/L (13-39); BUN/Creatinine Ratio 16 (6-26); Bilirubin,Total 0.5 mg/dL (0.3-1.0); Blood Urea Nitrogen 19 mg/dL (6-20); Calcium 9.8 mg/dL (8.6-10.3); Carbon Dioxide 26 mEq/L (23-29); Chloride 102 mEq/L (98-107); Glucose 127 mg/dL (70-105); Osmolality,Calculated 282 (280-300); Potassium 4.1 mEq/L (3.5-5.1); Sodium 134 mEq/L (136-145); Total Protein 7.5 g/dL (6.4-8.9); Troponin I < 0.03 ng/mL (< 0.04); eGFR For African Americans > 60 (> 60); eGFR For Non-African Americans > 60 (> 60)
[2020-11-18 18:34] LABS: Thyroid Stimulating Hormone 1.914 mcIU/mL (0.340-5.600)
[2020-11-18 18:36] LABS: Triiodothyronine (T3) Free 2.98 pg/mL (2.50-3.90)
[2020-11-18] MEDS ORDERED: Perflutren Lipid Microsphere 1.3 ML in 0.9 % Sodium Chloride 8.7 ML IVP PRN (19:58)
[2020-11-18] MEDS: Metoprolol XL (24 HR) Succ 50 MG TAB.ER.24H PO SCH (20:20)
[2020-11-18] MEDS ORDERED: Naloxone 0.4 MG/ML INJ IVP PRN ×2 (20:47→21:00)
[2020-11-18] MEDS ORDERED: Acetaminophen 325 MG TABLET PO PRN (20:47)
[2020-11-18] MEDS: *HR* Heparin 5,000 UNIT/ML VIAL SQ SCH (22:15)
[2020-11-19] MEDS ORDERED: Potassium Chloride 40 MEQ, Lidocaine 1% 2 ML in 0.9 % Sodium Chloride 500 ML IVPB ONE (00:08)
[2020-11-19 03:11] LABS: Hematocrit 46.4 % (37.5-50.1); Hemoglobin 15.1 g/dL (12.9-16.9); Mean Corpuscular HGB Conc 32.5 g/dL (31.6-35.5); Mean Corpuscular Hemoglobin 29.8 pg (28.0-33.3); Mean Corpuscular Volume 91.5 fL (83.0-100.0); Mean Platelet Volume 10.3 fL (9.4-12.4); Platelet Count 194 K/mcL (140-400); Red Blood Count 5.07 M/mcL (4.19-5.50); Red Cell Distribution Width 12.6 % (11.5-14.5); White Blood Count 8.6 K/mcL (4.3-11.1)
[2020-11-19 03:31] LABS: BUN/Creatinine Ratio 16 (6-26); Blood Urea Nitrogen 18 mg/dL (6-20); Calcium 9.4 mg/dL (8.6-10.3); Carbon Dioxide 31 mEq/L (23-29); Chloride 102 mEq/L (98-107); Chol/HDL Ratio 4.7 (0-4.9); Cholesterol 128 mg/dL (< 200); Glucose 105 mg/dL (70-105); HDL Cholesterol 27 mg/dL (40-59); LDL Cholesterol,Calculated 45 mg/dL (< 100); Osmolality,Calculated 286 (280-300); Phosphorous 3.7 mg/dL (2.7-4.5); Potassium 4.4 mEq/L (3.5-5.1); Sodium 137 mEq/L (136-145); Triglycerides 278 mg/dL (< 150); eGFR For African Americans > 60 (> 60); eGFR For Non-African Americans > 60 (> 60)
[2020-11-19 04:40] LABS: Estimated Average Glucose 126 mg/dl
[2020-11-19] MEDS: *HR* Heparin 5,000 UNIT/ML VIAL SQ SCH ×2 (06:14→13:15)
[2020-11-19] MEDS: Metoprolol XL (24 HR) Succ 50 MG TAB.ER.24H PO SCH (07:50)
[2020-11-19] MEDS ORDERED: Magnesium Oxide 400 MG TABLET PO SCH (09:00)
[2020-11-19] MEDS ORDERED: Aspirin Enteric Coated 81 MG Tablet PO SCH (09:00)
[2020-11-19] MEDS ORDERED: lisinopriL 5 MG TABLET PO SCH (09:00)
[2020-11-19 15:16] VITALS: BP 123/85
[2020-11-19] MEDS ORDERED: *HR* Rivaroxaban 10 MG TABLET PO SCH (17:00)
== END 2020-11-19 16:20 | disposition home or self-care (01) ==
LOC: EMEROOARM 17:19 → 2ANU 17:19 → SUATTDRO 19:48 → 2ANU 19:54
PROVIDERS: ADMIT Internal Medicine; ATTEND Internal Medicine

== ENCOUNTER 2021-03-15 10:10 | Observation (INO) ==
[2021-03-15 11:11] LABS: Basophils % 0.5 %; Eosinophils % 0.5 %; Hematocrit 45.4 % (37.5-50.1); Hemoglobin 14.9 g/dL (12.9-16.9); Immature Granulocytes % 0.3 % (0-4); Lymphocytes % 33.1 %; Mean Corpuscular HGB Conc 32.8 g/dL (31.6-35.5); Mean Corpuscular Hemoglobin 29.7 pg (28.0-33.3); Mean Corpuscular Volume 90.6 fL (83.0-100.0); Mean Platelet Volume 10.5 fL (9.4-12.4); Monocytes # 0.4 K/mcL (0.0-1.3); Monocytes % 7.1 %; Neutrophils # 3.6 K/mcL (1.6-8.9); Platelet Count 201 K/mcL (140-400); Red Blood Count 5.01 M/mcL (4.19-5.50); Red Cell Distribution Width 12.5 % (11.5-14.5); Segmented Neutrophils % 58.5 %; White Blood Count 6.2 K/mcL (4.3-11.1)
[2021-03-15 11:32] LABS: BUN/Creatinine Ratio 16 (6-26); Blood Urea Nitrogen 17 mg/dL (6-20); Calcium 9.2 mg/dL (8.6-10.3); Carbon Dioxide 26 mEq/L (23-29); Chloride 102 mEq/L (98-107); Glucose 112 mg/dL (70-105); Magnesium 1.9 mg/dL (1.6-2.6); Osmolality,Calculated 284 (280-300); Potassium 4.4 mEq/L (3.5-5.1); Sodium 136 mEq/L (136-145); eGFR For African Americans > 60 (> 60); eGFR For Non-African Americans > 60 (> 60)
[2021-03-15] MEDS: *HR* Rivaroxaban 10 MG TABLET PO SCH (18:07)
[2021-03-16] MEDS: Aspirin Enteric Coated 81 MG Tablet PO SCH (08:55)
[2021-03-16] MEDS: Magnesium Oxide 400 MG TABLET PO SCH (08:56)
[2021-03-16] MEDS: lisinopriL 5 MG TABLET PO SCH (08:59)
[2021-03-16] MEDS: Metoprolol XL (24 HR) Succ 50 MG TAB.ER.24H PO SCH (09:15)
[2021-03-16] MEDS: *HR* Rivaroxaban 10 MG TABLET PO SCH (16:52)
[2021-03-17] MEDS: lisinopriL 5 MG TABLET PO SCH (08:03)
[2021-03-17] MEDS: Aspirin Enteric Coated 81 MG Tablet PO SCH (08:03)
[2021-03-17] MEDS: Metoprolol XL (24 HR) Succ 50 MG TAB.ER.24H PO SCH (08:04)
[2021-03-17] MEDS: Magnesium Oxide 400 MG TABLET PO SCH (08:24)
[2021-03-17] MEDS ORDERED: 0.9 % Sodium Chloride 500 ML IVC ONE (13:16)
[2021-03-17 13:48] VITALS: TEMP 97.6
[2021-03-17] MEDS: *HR* FentaNYL (PF) 100 MCG/2 ML VIAL IVP PRN ×4 (14:08→14:21)
[2021-03-17] MEDS: *HR* Midazolam HCl 5 MG/5 ML VIAL IVP PRN ×4 (14:08→14:21)
[2021-03-17 17:30] VITALS: BP 125/77; PULSE 64; O2SAT 97
== END 2021-03-17 17:38 | disposition home or self-care (01) ==
LOC: CDU → 2ANU 03-16 21:36
PROVIDERS: ADMIT Internal Medicine Clinical Cardiac Electrophysiology; ATTEND Internal Medicine Clinical Cardiac Electrophysiology

== ENCOUNTER 2021-08-09 06:57 | Observation (INO) ==
[2021-08-09] MEDS ORDERED: *HR* Midazolam HCl 2 MG/2 ML VIAL ONE (07:49)
[2021-08-09] MEDS ORDERED: *HR* FentaNYL (PF) 100 MCG/2 ML VIAL ONE (07:49)
[2021-08-09] MEDS ORDERED: Ondansetron 4 MG/2 ML VIAL IVP PRN (07:59)
[2021-08-09] MEDS ORDERED: *HR* Vasopressin 20 UNIT/ML VIAL ONE (08:01)
[2021-08-09] MEDS ORDERED: 0.9 % Sodium Chloride 1,000 ML ONE ×2 (08:04→08:46)
[2021-08-09] MEDS ORDERED: Protamine Sulfate 50 MG/5 ML VIAL IVP ONE (08:45)
[2021-08-09] MEDS ORDERED: *HR* Heparin 10,000 UNIT/10 ML VIAL ONE (08:46)
[2021-08-09] MEDS ORDERED: Heparin 1,000 UNITS/500 mL 1,500 ML ONE (08:46)
[2021-08-09] MEDS ORDERED: ISOVUE-370 200 ML INFUS..BTL ONE (08:47)
[2021-08-09] MEDS ORDERED: Heparin 1,000 UNITS/500 mL 500 ML ONE ×2 (09:44→09:46)
[2021-08-09] MEDS ORDERED: Lidocaine -MPF 4% 5 ML AMPUL TP ONE (10:21)
[2021-08-09] MEDS ORDERED: *HR* Water for inj. (sterile) Vial 10 ML IV ONE (10:21)
[2021-08-09] MEDS ORDERED: *HR* Succinylcholine 200 MG/10 ML VIAL IVP ONE (10:21)
[2021-08-09] MEDS ORDERED: *HR* Phenylephrine 10 MG/ML VIAL IVC ONE (10:21)
[2021-08-09] MEDS ORDERED: *HR* Propofol 200 MG/20 ML VIAL IVP ONE (10:21)
[2021-08-09] MEDS ORDERED: Lidocaine -MPF 2% 5 ML VIAL SQ ONE (10:21)
[2021-08-09] MEDS ORDERED: Ondansetron 4 MG/2 ML VIAL IVP ONE (10:21)
[2021-08-09] MEDS ORDERED: Naloxone 0.4 MG/ML INJ IVP PRN (12:21)
[2021-08-09] MEDS ORDERED: Nitroglycerin 0.4 MG TAB.SUBL SL PRN (12:24)
[2021-08-09] MEDS ORDERED: *HR* Rivaroxaban 10 MG TABLET PO SCH ×2 (17:00→21:00)
[2021-08-09] MEDS: Ringers Solution, Lactated 1,000 ML IVC SCH (19:39)
[2021-08-10 07:23] VITALS: BP 95/70; PULSE 92; TEMP 98.1; O2SAT 97
[2021-08-10] MEDS: Ringers Solution, Lactated 1,000 ML IVC SCH (08:53)
[2021-08-10] MEDS ORDERED: Magnesium Oxide 400 MG TABLET PO SCH (09:00)
[2021-08-10] MEDS ORDERED: Metoprolol XL (24 HR) Succ 50 MG TAB.ER.24H PO SCH (09:00)
[2021-08-10] MEDS ORDERED: Aspirin Enteric Coated 81 MG Tablet PO SCH (09:00)
[2021-08-10] MEDS ORDERED: lisinopriL 5 MG TABLET PO SCH (09:00)
== END 2021-08-10 10:22 | disposition home or self-care (01) ==
LOC: 2NENU 06:57 → INVDIALAB 06:57
PROVIDERS: ADMIT Internal Medicine Clinical Cardiac Electrophysiology; ATTEND Internal Medicine Clinical Cardiac Electrophysiology